=== PATIENT | male | born 1990 | race Asian ===

== ENCOUNTER 2018-10-24 17:15 | Emergency (ER) | payer OTHER ==
[~2018-10-24] VITALS: Ht 157.5 cm; Wt 79.5 kg
[2018-10-24] MEDS ORDERED: HYDR-3110 PO (18:53)
[2018-10-24] MEDS ORDERED: TRIA1KT.2 TP (18:53)
[2018-10-24] MEDS ORDERED: CEPHALEXIN MONOHYDRATE 500 MG CAPSULE PO ONE (21:15)
[2018-10-24] MEDS ORDERED: PredniSONE 20 MG TABLET PO ONE (21:15)
[2018-10-24] MEDS ORDERED: DiphenhydrAMINE HCL 50 MG/ML VIAL IM ONE (21:15)
[2018-10-24] MEDS ORDERED: DEXAMETHASONE SOD PHOS 4 MG/ML 5 ML VIAL IM ONE (21:30)
[2018-10-24 21:58] VITALS: BP 134/78
== END 2018-10-24 21:58 | disposition home or self-care (01) ==
LOC: EMS 17:16
DX: L20.9 Atopic dermatitis, unspecified (principal)
CPT/HCPCS: 96372; 99283; J1100; J1200